=== PATIENT | male | born 1955 | race Caucasian/White ===

== ENCOUNTER 2017-08-27 01:20 | Emergency (ER) | payer BC ==
--- NOTE | 2017-08-27 03:00 | EDM.PDOC ---
ED HPI GENERAL MEDICAL PROBLEM - General Chief Complaint: Cardiovascular Problem Stated Complaint: NAUSEA HIGH BLOOD PRESSURE Time Seen by Provider: 08/27/17 01:56 Source of Information: Reports: Patient History Limitations: Reports: No Limitations - History of Present Illness INITIAL COMMENTS - FREE TEXT/NARRATIVE: The patient presents with elevated blood pressure. He has a history of high blood pressure. He was on amlodipine and an yuri inhibitor. He stopped taking his meds because his blood pressure was good. For the past few days he felt flushed in the face and had a slight headache. He took his blood pressure at home and it was 192/108. It is better when he arrives here in the ER. He has some nausea but no vomiting. He has some slight pressure in the epigastric region like he is full. He denies chest pain, cough, shortness of breath, diarrhea and dysuria. Onset: Gradual Duration: Day(s): Location: Reports: Head Quality: Reports: Ache Severity: Mild Improves with: Reports: None Worsens with: Reports: None Associated Symptoms: Reports: Headaches, Nausea/Vomiting. Denies: Confusion, Chest Pain, Cough, Fever/Chills, Shortness of Breath Treatments TREATMENT MANAGER: Reports: Aspirin Abdominal Pain Score (Numeric/FACES): 3 - Related Data Allergies Allergy/AdvReac Type Severity Reaction Status Date / Time No Known Allergies Allergy Verified 08/27/17 01:26 Home Meds: Home Meds . [No Known Home Meds] 08/27/17 [History] Past Medical History Cardiovascular History: Reports: High Cholesterol, Hypertension Respiratory History: Reports: Asthma Social & Family History - Tobacco Use Smoking Status *Q: Never Smoker - Caffeine Use Caffeine Use: Reports: Coffee, Soda - Recreational Drug Use Recreational Drug Use: No ED ROS GENERAL - Review of Systems Review Of Systems: See Below Constitutional: Reports: No Symptoms HEENT: Reports: Other (Face is flushed) Respiratory: Reports: No Symptoms Cardiovascular: Reports: Blood Pressure Problem. Denies: Chest Pain Endocrine: Reports: No Symptoms GI/Abdominal: Reports: Abdominal Pain, Nausea. Denies: Diarrhea, Vomiting : Reports: No Symptoms Musculoskeletal: Reports: No Symptoms Skin: Reports: No Symptoms ED EXAM, GENERAL - Physical Exam Exam: See Below Exam Limited By: No Limitations General Appearance: Alert, No Apparent Distress Ears: Normal External Exam Nose: Normal Inspection Head: Atraumatic, Normocephalic Neck: Normal Inspection Respiratory/Chest: No Respiratory Distress, Lungs Clear, Normal Breath Sounds Cardiovascular: Regular Rate, Rhythm, No Edema, No Murmur GI/Abdominal: Soft, Non-Tender, No Organomegaly, No Mass Back Exam: Normal Inspection Extremities: Normal Inspection Neurological: Alert, Oriented, No Motor/Sensory Deficits EKG INTERPRETATION EKG Date: 08/27/17 Time: 02:18 Rhythm: Other (sinus bradycardia) Rate (Beats/Min): 57 [place]: Normal P-Wave: Present QRS: Normal ST-T: Normal QT: Normal Course - Vital Signs Last Recorded V/S: Last Vital Signs Temp 98.0 F 08/27/17 01:28 Pulse 58 L 08/27/17 01:34 Resp 18 08/27/17 01:28 BP 169/85 H 08/27/17 01:28 Pulse Ox 97 08/27/17 01:28 - Orders/Labs/Meds Orders: Active Orders 24 hr Category Date Time Status Cardiac Monitoring [RC] . DIRECTED Care 08/27/17 02:03 Active EKG Documentation Completion [RC] STAT Care 08/27/17 02:03 Active Labs: Laboratory Tests 08/27/17 08/27/17 Range/Units 02:20 02:20 WBC 7.77 (4.23-9.07) K/mm3 RBC 5.43 (4.63-6.08) M/mm3 Hgb 15.7 (13.7-17.5) gm/L Hct 44.5 (40.1-51.0) % MCV 82.0 (79.0-92.2) fl MCH 28.9 (25.7-32.2) pg MCHC 35.3 (32.2-35.5) g/dl RDW Std Deviation 38.1 (35.1-43.9) fL Plt Count 231 (163-337) K/mm3 MPV 8.9 L (9.4-12.3) fl Neut % (Auto) 81.0 H (34.0-67.9) % Lymph % (Auto) 11.7 L (21.8-53.1) % [place] % (Auto) 4.0 L (5.3-12.2) % Eos % (Auto) 2.8 (0.8-7.0) Baso % (Auto) 0.4 (0.1-1.2) % Neut # (Auto) 6.29 H (1.78-5.38) K/mm3 Lymph # (Auto) 0.91 L (1.32-3.57) K/mm3 [place] # (Auto) 0.31 (0.30-0.82) K/mm3 Eos # (Auto) 0.22 (0.04-0.54) K/mm3 Baso # (Auto) 0.03 (0.01-0.08) K/mm3 Sodium 139 (136-145) mEq/L Potassium 4.1 (3.5-5.1) mEq/L Chloride 103 (98-107) mEq/L Carbon Dioxide 25 (21-32) mEq/L Anion Gap 15.1 H (5-15) BUN 15 (7-18) mg/dL Creatinine 0.9 (0.7-1.3) mg/dL Est Cr Clr Drug Dosing 84.44 mL/min Estimated GFR (MDRD) > 60 (>60) mL/min BUN/Creatinine Ratio 16.7 (14-18) Glucose 145 H (74-106) mg/dL Calcium 9.3 (8.5-10.1) mg/dL Total Bilirubin 0.3 (0.2-1.0) mg/dL AST 19 (15-37) U/L ALT 39 (16-63) U/L Alkaline Phosphatase 86 (46-116) U/L Troponin I < 0.017 (0.00-0.056) ng/mL Total Protein 7.9 (6.4-8.2) g/dl Albumin 4.5 (3.4-5.0) g/dl Globulin 3.4 gm/dL Albumin/Globulin Ratio 1.3 (1-2) - Re-Assessments/Exams Free Text/Narrative Re-Assessment/Exam: 08/27/17 03:01 I ordered an EKG, and labs. His BP is down to the 140s systolic. His EKG shows a sinus bradycardia with no acute changes. His CBC looks good. His blood sugar was elevated at 145. His troponin was negative. He took one of his amlodipine. His blood pressure is now 141/89. 08/27/17 03:16 His heart looks good and his blood pressure is better. He is more concerned about his flushed face. He has been out in the cold but nothing more then normal. He has no shortness of breath or trouble swallowing. He is wondering if he is reacting to something. He does remember taking some over the counter sinus medicine. His cannot tolerate that either. That appears to be the problem. I will order some benadryl and have him stop the med. Departure - Departure Time of Disposition: 03:20 Disposition: Home, Self-Care 01 Condition: Good Clinical Impression: Hypertension Qualifiers: Hypertension type: essential hypertension Qualified Code(s): I10 - Essential ( primary) hypertension Allergic reaction Qualifiers: Encounter type: initial encounter Qualified Code(s): T78.40XA - Allergy, unspecified, initial encounter Referrals: PCP,None [Primary Care Provider] - Forms: ED Department Discharge Additional Instructions: Do not take that medication again. Take benadryl every 6 hours as needed for rash or shortness of breath. You also may take claritin. That will not make you sleepy like benadryl will. Please return if you are worse. Check your blood pressure over the next few days. Follow up with your doctor and have your blood pressure machine checked. - My Orders Last 24 Hours: My Active Orders 08/27/17 02:03 Cardiac Monitoring [RC] . DIRECTED EKG Documentation Completion [RC] STAT - Assessment/Plan Last 24 Hours: My Active Orders 08/27/17 02:03 Cardiac Monitoring [RC] . DIRECTED EKG Documentation Completion [RC] STAT
[2017-08-27] MEDS ORDERED: diphenhydrAMINE 50 MG Cap PO ONE (03:19)
== END 2017-08-27 03:35 | disposition home or self-care (01) ==
LOC: JD.ED 01:20
DX: I10 Essential (primary) hypertension (principal); R23.2 Flushing; T50.995A Adverse effect of other drugs, medicaments and biological substances, initial encounter; E78.00 Pure hypercholesterolemia, unspecified; J45.909 Unspecified asthma, uncomplicated; Z79.899 Other long term (current) drug therapy
CPT/HCPCS: 36415; 80053; 84484; 85025; 93005; 99284; A9270; 93010

== ENCOUNTER 2017-09-01 16:21 | Emergency (ER) | payer OTHER, BC ==
[2017-09-01] MEDS ORDERED: Aluminum Hydroxide/Magnesium Hydroxide/Simethicone Susp 30 ML Cup PO ONE (16:52)
[2017-09-01] MEDS ORDERED: Famotidine 20 MG Tab PO ONE (16:52)
[2017-09-01] MEDS ORDERED: amLODIPine 5 MG Tab PO ONE (16:52)
[2017-09-01] MEDS ORDERED: Sodium Chloride 0.9% 10 ML Syringe FLUSH PRN (16:52)
--- NOTE | 2017-09-01 17:00 | EDM.PDOC ---
ED HPI GENERAL MEDICAL PROBLEM - General Chief Complaint: Chest Pain Stated Complaint: CHEST PAIN/DIZZY Time Seen by Provider: 09/01/17 16:37 Source of Information: Reports: Patient History Limitations: Reports: No Limitations - History of Present Illness INITIAL COMMENTS - FREE TEXT/NARRATIVE: 61 y/o M with hx HTN presents with upper abd discomfort and high blood pressure. States he's been having upper abd discomfort off and on for several days. +burning. Worse with eating. Not actually pain but more of an uncomfortable feeling. No nausea/vomiting. no diarrhea/constipation. No fever. No prior hx of similar symptoms. Currently has minimal abd discomfort. Also concerned about high BP. Was previously on benazepril 20mg daily and amlodipine 5mg daily but self dc-ed these meds as he didn't think they were working. Has noted BP's in high 100's lately so is concerned. is worried that his high BP could be causing a heart attack. He denies CP. No SOB. No neurological symptoms. Has not taken anti-hypertensives today. Epigastric Pain Score (Numeric/FACES): 5 - Related Data Allergies Allergy/AdvReac Type Severity Reaction Status Date / Time No Known Allergies Allergy Verified 09/01/17 16:31 Home Meds: Home Meds Famotidine 40 mg PO DAILY #30 tablet 09/01/17 [Rx] Past Medical History Cardiovascular History: Reports: High Cholesterol, Hypertension Respiratory History: Reports: Asthma Social & Family History - Tobacco Use Smoking Status *Q: Never Smoker - Caffeine Use Caffeine Use: Reports: Coffee - Recreational Drug Use Recreational Drug Use: No ED ROS GENERAL - Review of Systems Review Of Systems: See Below Constitutional: Reports: Malaise. Denies: Fever HEENT: Reports: No Symptoms Respiratory: Denies: Shortness of Breath Cardiovascular: Denies: Chest Pain GI/Abdominal: Reports: Abdominal Pain Musculoskeletal: Denies: Leg Pain Neurological: Reports: No Symptoms ED EXAM, GENERAL - Physical Exam Exam: See Below Exam Limited By: No Limitations General Appearance: Alert, WD/WN, No Apparent Distress Eye Exam: Bilateral Eye: EOMI, Normal Inspection, PERRL Ears: Normal External Exam Nose: Normal Inspection Throat/Mouth: Normal Inspection, Normal Voice, No Airway Compromise Head: Atraumatic, Normocephalic Neck: Normal Inspection, Supple, Non-Tender, Full Range of Motion Respiratory/Chest: No Respiratory Distress, Lungs Clear, Normal Breath Sounds, Chest Non-Tender Cardiovascular: Normal Peripheral Pulses, Regular Rate, Rhythm, No Edema, No Murmur GI/Abdominal: Soft, No Distention, Other (minimal epigatric TTP). No: Rebound Back Exam: Normal Inspection Extremities: Normal Inspection Neurological: Alert, Oriented, Normal Cognition, No Motor/Sensory Deficits Psychiatric: Normal Affect, Normal Mood Skin Exam: Warm, Dry, Intact, Normal Color, No Rash Course - Vital Signs Last Recorded V/S: Last Vital Signs Temp 36.3 C 09/01/17 16:28 Pulse 60 09/01/17 18:40 Resp 16 09/01/17 18:40 BP 154/90 H 09/01/17 18:40 Pulse Ox 98 09/01/17 18:40 - Orders/Labs/Meds Orders: Active Orders 24 hr Category Date Time Status EKG 12 Lead [EKG Documentation Completion] [RC] STAT Care 09/01/17 17:56 Active Peripheral IV Care [RC] . DIRECTED Care 09/01/17 16:52 Active Peripheral IV Care [RC] . DIRECTED Care 09/01/17 16:52 Active Sodium Chloride 0.9% [Saline Flush] Med 09/01/17 16:52 Active 10 ml FLUSH ASDIRECTED PRN Peripheral IV Insertion Adult [OM.PC] Routine Oth 09/01/17 16:52 Ordered Medication Orders Sodium Chloride (Saline Flush) 10 ml FLUSH ASDIRECTED PRN PRN Reason: Keep Vein Open Last Admin: 09/01/17 17:07 Dose: 10 ml Labs: Laboratory Tests 09/01/17 09/01/17 Range/Units 17:05 17:05 WBC 5.83 (4.23-9.07) K/mm3 RBC 4.99 (4.63-6.08) M/mm3 Hgb 14.5 (13.7-17.5) gm/L Hct 41.1 (40.1-51.0) % MCV 82.4 (79.0-92.2) fl MCH 29.1 (25.7-32.2) pg MCHC 35.3 (32.2-35.5) g/dl RDW Std Deviation 37.9 (35.1-43.9) fL Plt Count 228 (163-337) K/mm3 MPV 9.0 L (9.4-12.3) fl Neut % (Auto) 62.6 (34.0-67.9) % Lymph % (Auto) 18.2 L (21.8-53.1) % [place] % (Auto) 9.1 (5.3-12.2) % Eos % (Auto) 9.4 H (0.8-7.0) Baso % (Auto) 0.7 (0.1-1.2) % Neut # (Auto) 3.65 (1.78-5.38) K/mm3 Lymph # (Auto) 1.06 L (1.32-3.57) K/mm3 [place] # (Auto) 0.53 (0.30-0.82) K/mm3 Eos # (Auto) 0.55 H (0.04-0.54) K/mm3 Baso # (Auto) 0.04 (0.01-0.08) K/mm3 Sodium 141 (136-145) mEq/L Potassium 4.0 (3.5-5.1) mEq/L Chloride 104 (98-107) mEq/L Carbon Dioxide 25 (21-32) mEq/L Anion Gap 16.0 H (5-15) BUN 15 (7-18) mg/dL Creatinine 0.7 (0.7-1.3) mg/dL Est Cr Clr Drug Dosing 108.57 mL/min Estimated GFR (MDRD) > 60 (>60) mL/min BUN/Creatinine Ratio 21.4 H (14-18) Glucose 109 H (74-106) mg/dL Calcium 9.5 (8.5-10.1) mg/dL Total Bilirubin 0.3 (0.2-1.0) mg/dL AST 18 (15-37) U/L ALT 29 (16-63) U/L Alkaline Phosphatase 73 (46-116) U/L Troponin I < 0.017 (0.00-0.056) ng/mL Total Protein 7.4 (6.4-8.2) g/dl Albumin 4.3 (3.4-5.0) g/dl Globulin 3.1 gm/dL Albumin/Globulin Ratio 1.4 (1-2) Lipase 119 (73-393) U/L Meds: Medications Generic Name Dose Route Start Last Admin Trade Name Meg PRN Reason Stop Dose Admin Sodium Chloride 10 ml 09/01/17 16:52 09/01/17 17:07 Saline Flush FLUSH 10 ml ASDIRECTED PRN Administration Keep Vein Open Discontinued Medications Generic Name Dose Route Start Last Admin Trade Name Meg PRN Reason Stop Dose Admin Al Hydroxide/Mg Hydroxide 30 ml 09/01/17 16:52 09/01/17 16:58 Mag-Al Plus PO 09/01/17 16:53 30 ml ONETIME ONE Administration Amlodipine Besylate 10 mg 09/01/17 16:52 09/01/17 16:58 Norvasc PO 09/01/17 16:53 10 mg ONETIME ONE Administration Famotidine 40 mg 09/01/17 16:52 09/01/17 16:58 Pepcid PO 09/01/17 16:53 40 mg ONETIME ONE Administration - Re-Assessments/Exams Free Text/Narrative Re-Assessment/Exam: 09/01/17 19:02 EKG shows NSR, no evidence of acute ischemia. CXR is normal. CBC/chem/trop neg. Well appearing, SBP is 160-180 here but he is asymptomatic. Encouraged him to restart his home meds, keep a BP log, and f/u with PCP for BP concerns. As far as abdominal discomfort goes, his exam is quite benign (no tenderness) and he feels better after famotidine. Gastritis or ulcer is possible, discussed this with him and his . Lipase/LFT's/labs normal. Plan = antacids and diet modifcation, PCP f/u or ED if worse. Discussed return precautions. Departure - Departure Time of Disposition: 18:13 Disposition: Home, Self-Care 01 Clinical Impression: Dyspepsia High blood pressure Qualifiers: Hypertension type: essential hypertension Qualified Code(s): I10 - Essential ( primary) hypertension Prescriptions: Famotidine 40 mg PO DAILY #30 tablet Instructions: Hypertension, [id number] Referrals: PCP,Not In Area [Primary Care Provider] - Forms: ED Department Discharge Additional Instructions: 1. Restart your home blood pressure medications (benazepril 20 mg daily and amlodipine 5 mg daily). Keep a daily blood pressure log if possible and bring to your next primary care appointment. 2. Call [phone] to schedule with a primary care provider for follow-up, ideally in about one week. 3. Take famotidine as prescribed to reduce stomach acid. You may also take Tums or Maalox as needed for upper abdominal discomfort. 4. Return to the ED if you have any new concerning symptoms, such as chest pain , difficulty breathing, severe abdominal pain, or any other concerning symptoms. - My Orders Last 24 Hours: My Active Orders 09/01/17 16:52 Peripheral IV Care [RC] . DIRECTED Peripheral IV Care [RC] . DIRECTED Sodium Chloride 0.9% [Saline Flush] 10 ml FLUSH ASDIRECTED PRN Peripheral IV Insertion Adult [OM.PC] Routine 09/01/17 17:56 EKG 12 Lead [EKG Documentation Completion] [RC] STAT - Assessment/Plan Last 24 Hours: My Active Orders 09/01/17 16:52 Peripheral IV Care [RC] . DIRECTED Peripheral IV Care [RC] . DIRECTED Sodium Chloride 0.9% [Saline Flush] 10 ml FLUSH ASDIRECTED PRN Peripheral IV Insertion Adult [OM.PC] Routine 09/01/17 17:56 EKG 12 Lead [EKG Documentation Completion] [RC] STAT
--- NOTE | 2017-09-01 17:49 | CR ---
Chest: Portable view of the chest was obtained. Comparison: No prior chest x-ray. Heart size is within normal limits for portable technique. Upper mediastinum is within normal limits for portable technique. Lungs are clear. Bony structures are grossly intact. Impression: 1. Nothing acute is seen on portable chest x-ray. Diagnostic code #1
== END 2017-09-01 18:35 | disposition home or self-care (01) ==
LOC: JD.ED 16:21
DX: R10.13 Epigastric pain (principal); I10 Essential (primary) hypertension; E78.00 Pure hypercholesterolemia, unspecified; Z79.899 Other long term (current) drug therapy
CPT/HCPCS: 36415; 71045; 80053; 83690; 84484; 85025; 93005; 99285; A9270; J7050; 93010; 99284